=== PATIENT | male | born 1960 | race Caucasian/White ===

== ENCOUNTER 2025-02-17 16:27 | Emergency (ER) | payer BC, SELFPAY ==
[2025-02-17 16:29] VITALS: BP 185/101
[2025-02-17 16:56] VITALS: BMI 35.3
--- NOTE | 2025-02-17 17:02 | ED.GENMED ---
History of Present Illness
General
Chief Complaint: Musculo-Skeletal Complaint
Source: patient
Exam Limitations: none
Time Seen by Provider: 02/17/25 16:55
History of Present Illness
History of Present Illness:
See MDM
Past History
Past History
ED Past Medical History: None
ED Past Surgical History: None
Social History
Tobacco: Non-smoker
Alcohol: None
Phy Exam
Physical Exam
Physical Exam:
See MDM
Course
Orders/Labs/Results
Orders:
Orders
02/17/25 17:01
Elbow, 3 view, Left [CR Elbow - Left Min 3 Views ] Urgent
Comment:
Reason For Exam: fall, left elbow pain
Hand, Left 3 View [CR Hand - Left Min 3 Views] Urgent
Comment:
Reason For Exam: fall, palmar pain
Vital Signs
Initial and Last Documented VS:
Initial Vital Signs
Temp Pulse Resp BP Pulse Ox
98.0 F 76 16 185/101 98
02/17/25 16:29 02/17/25 16:29 02/17/25 16:29 02/17/25 16:29 02/17/25 16:29
Last Documented Vital Signs
Temp Pulse Resp BP Pulse Ox
98.0 F 76 16 185/101 98
02/17/25 16:29 02/17/25 16:29 02/17/25 16:29 02/17/25 16:29 02/17/25 17:03
Procedures
Ring removal
Ring removed with: ring cutters
Is finger swollen distally?: No
Distal sensation: intact to touch
Distal capillary refill: brisk
MDM/Problems Addressed
Differential Diagnosis Includes:
Note:
CHIEF COMPLAINT(S)
Hand swelling and tight ring on finger after a fall.
HISTORY OF PRESENT ILLNESS
The patient is a 64-year-old individual presenting with hand swelling after a fall on Wednesday. The patient reports that the swelling occurred following the fall while picking up catering. The swelling has caused a ring on the finger to tighten,
prompting a jeweler to advise removal to prevent potential loss of the finger. The patient indicates no numbness or tingling associated with the swelling. The patient is agreeable to having the ring cut off, as it will need adjustment regardless.
Patient states the ring has been tight for decades. The patient describes the hand as bruised and slightly swollen but experiences discomfort when pressure is applied or when attempting to remove the ring.
PHYSICAL EXAM
General: Alert, no acute distress.
Skin: Warm, dry.
Head: Normocephalic, atraumatic
Neck: Appears supple, trachea midline.
Eyes, Ears, Nose, Mouth, and Throat: Moist mucous membranes
Cardiovascular: No signs of cyanosis
Respiratory: Respirations are non-labored.
Abdomen: Non-distended
Musculoskeletal: Ecchymosis to palmar aspect of left hand with mild edema
Neurological: No focal neurological deficit observed.
Psychiatric: Cooperative, appropriate mood and affect.
PLAN
Proceed with ordering and reviewing an x-ray of the hand to determine any underlying fractures or complications.
Per patient's preference, the ring was cut off using a ring cutter. Patient tolerated procedure well with no bruising or bleeding or skin irritation noted
DIFFERENTIAL DIAGNOSIS
The Differential Diagnosis includes, in no particular order and is not limited to:
- Contusion
- Compartment syndrome
- Fracture
- Tendon injury
- Ligament sprain
- Infection
- Soft tissue damage
- Dislocation
- Subluxation
- Arthritis exacerbation
SUMMARY OF ENCOUNTER
The patient was seen in the emergency department for hand swelling and a tight ring following a fall. Management included plans to obtain an x-ray to rule out fractures and other injuries. No immediate complaints of pain or neurologic symptoms were
noted, but the urgency of the ring removal was addressed.
INDEPENDENT REVIEW OF LABS AND INTERPRETATION OF TESTS
My independent interpretation of x-ray studies is forthcoming pending completion of ordered imaging.
SUMMARY OF ENCOUNTER
The patient was seen in the emergency department for swelling in the left hand after a fall. The swelling led to a tight ring on the finger, which was cut off based on the patients preference. A mild radial head fracture was noted, and the patient
also reported mild left elbow pain. A sling was provided due to the fracture. The patients condition and the necessity for follow-up with orthopedists were discussed.
PLAN
Arrange follow-up with orthopedists for evaluation and management of the radial head fracture and to ensure proper healing and functionality of the hand and elbow.
MEDICAL DECISION MAKING
- Complexity of Data Reviewed: The differential diagnosis list includes contusion, compartment syndrome, fracture, tendon injury, ligament sprain, infection, soft tissue damage, dislocation, subluxation, and arthritis exacerbation.
- Data:
Category 1: An x-ray of the hand was ordered to rule out any other fractures or complications.
- Risk: Consideration of Admission/Observation: Escalation of care including admission/observation was considered given the complexity and risk of the patients presenting complaint, exam findings, and/or their underlying comorbidities. However,
ultimately, I feel the patient is safe for outpatient management with close follow-up. Reasoning: Work-up reassuring, does not reveal any acute life/organ threatening processes, patients symptoms well controlled upon reevaluation, reexamination is
reassuring, vitals are stable, patient agreeable with discharge, reliable for follow-up.
DIAGNOSIS
- Contusion of hand (ICD-10-CM S60.221A)
- Foreign body entrapment (tight ring) (ICD-10-CM T81.5XXA)
- Possible soft tissue injury (ICD-10-CM S69.80XA)
- Radial head fracture (ICD-10-CM S52.11XA)
*Pulse Oximetry
SaO2: 98
Oxygen Mode of Delivery: Room air
Patient hypoxic: no
*Critical Care Note
Total Time (30-74mins, 75-104mins- exclusive of procedures): Not Applicable
ED Attending Note
-
Portions of this chart may have been created with voice recognition software.� Occasional wrong word or��sound alike� substitutions may have occurred due to the inherent limitations of voice recognition software.
Discharge Plan
Departure
Patient Disposition: Home (Routine Discharge)
Date of Disposition: 02/17/25
Time of Disposition: 17:52
Patient with high blood pressure during this ER visit?: Yes
Discharge Problem:
Fracture of radial head, left, closed
Instructions: Elbow Fracture, Adult ED
Referrals:
Carlos Hess DO [Family Provider, Family Practice]
Xavier García MD [Active, Orthopedics]
Activity Restrictions/Additional Instructions:
Please return for any worsening symptoms.
You may return at any time if you have further concerns.
Please follow up with the orthopedist at the first available appointment, preferably this week.
Thank you for choosing [facility].
Interventions
Interventions:
*General Assessment Last Done: 02/17/25 16:29
*Neglect/Abuse Screening Last Done: 02/17/25 16:29
*ED COVID-19 Vaccine History Last Done: 02/17/25 16:29
*ED Influenza Vaccine History Last Done: 02/17/25 16:29
[facility] Risk Assessment Tool Last Done: 02/17/25 16:56
*Risk Screen - Suicide (C-SSRS) Last Done: 02/17/25 16:29
ED- Cardiac Assessment Last Done: 02/17/25 16:57
ED-Musculoskeletal Assessment Last Done: 02/17/25 16:57
ED- Pulmonary Assessment Last Done: 02/17/25 16:57
ED-Skin Assessment Last Done: 02/17/25 16:57
Discharge Date and Time
Print Language: YI
== END 2025-02-17 18:14 | disposition home or self-care (01) ==
LOC: EMR 16:27
PROVIDERS: EMERGENCY PHYSICIAN Student in an Organized Health Care Education/Training Program; FAMILY PHYSICIAN Family Medicine
DX: S52.125A Nondisplaced fracture of head of left radius, initial encounter for closed fracture (principal); S60.222A Contusion of left hand, initial encounter; W19.XXXA Unspecified fall, initial encounter; S60.455A Superficial foreign body of left ring finger, initial encounter; W49.04XA Ring or other jewelry causing external constriction, initial encounter
CPT/HCPCS: 99283; 73080; 73130